=== PATIENT | male | born 1975 | race Caucasian/White ===

== ENCOUNTER 2016-11-20 01:14 | Emergency (ER) | payer OTHER ==
[~2016-11-20] VITALS: Ht 182.8 cm; Wt 95.3 kg
[~2016-11-20 01:14] MED LIST: ABILIFY15 MG PO; ACYCLOVIR800 MG PO; ALBUTEROL0.09 MG/A2 IH; AMOXICILLIN500 M2 PO; BIAXIN500 MG PO; CIPRODEX 0.3%-7.5 ML OT; CLARITIN10 MG PO; DOXYCYCLINE MO100 MG PO; FLEXERIL10 MG PO; FLONASE ALLERG9.9 ML NS; IBU800 MG PO; MOTRIN800 MG PO; Motrin,Rufen800 MG PO; PHENERGAN W/DM120 ML PO; PREDNISONE10 MG PO; PREDNISONE20 MG PO; ROBITUSSIN AC 110 ML PO; SUDAFED60 MG PO; TESSALON PERLE200 MG PO; VENTOLIN H0.09 MG/AC INH; ZITHROMAX Z PA250 MG PO; ZITHROMAX250 MG PO; ZOFRAN4 MG PO; ZYRTEC10 MG PO
[2016-11-20 01:54] LABS: BASO % 0.5 % (0.0-1.0); EOS % 0.5 % (1.0-4.0); HEMATOCRIT 42.5 % (42.0-52.0); HEMOGLOBIN 14.7 g/dl (14.0-18.0); LYMPH # 1.1 10*3/uL (1.3-4.4); LYMPH % 12.6 % (27.0-41.0); MEAN CELL VOLUME 88.2 fl (80.0-94.0); MEAN CORPUSCULAR HGB 30.5 pg (27.0-31.0); MEAN CORPUSCULAR HGB CONC 34.6 g/dl (33.0-37.0); MEAN PLATELET VOLUME 10.8 fl (9.6-12.3); MONO # 0.7 10*3/uL (0.1-1.0); MONO % 8.7 % (3.0-9.0); NEUT # 6.5 10*3/uL (2.3-7.9); NEUT % 77.6 % (47.0-73.0); PLATELET COUNT AUTOMATED 195 10*3/uL (130-400); RED BLOOD COUNT 4.82 10*6/uL (4.50-5.90); RED CELL DISTRI WIDTH 13.3 % (0-14.5); WHITE BLOOD COUNT 8.3 10*3/uL (4.8-10.8)
[2016-11-20 02:11] LABS: BUN 14 mg/dl (7-24); C-REACTIVE PROTEIN 6.69 MG/DL (0-0.3); CARBON DIOXIDE 21 mmol/L (21-32); CHLORIDE 105 mmol/L (98-107); EST GLOM FILT AFRICAN AMERICAN > 60 ml/min; GLUCOSE 143 mg/dL (65-99); POTASSIUM 3.7 mmol/L (3.5-5.1); SODIUM 138 mmol/L (136-145)
[2016-11-20] MEDS ORDERED: AMOXICILLIN500 M2 PO (03:02)
[2016-11-20] MEDS ORDERED: KETOROLAC10 MG PO (03:02)
== END 2016-11-20 03:30 | disposition home or self-care (01) ==
LOC: ED 01:14
PROVIDERS: Emergency Medicine Emergency Medical Services
DX: J02.9 Acute pharyngitis, unspecified (principal); M79.1 Myalgia; R21 Rash and other nonspecific skin eruption; R05 Cough; F17.200 Nicotine dependence, unspecified, uncomplicated

== ENCOUNTER 2020-07-01 02:44 | Observation (INO) | payer OTHER ==
[~2020-07-01] VITALS: Ht 185.4 cm; Wt 94.9 kg
[~2020-07-01 02:44] MED LIST changes: +KETOROLAC10 MG PO
[2020-07-01 02:52] VITALS: BP 176/139
[2020-07-01 03:40] LABS: BASO % 0.3 % (0.0-1.0); EOS # 0.1 10*3/uL (0.0-0.4); EOS % 0.6 % (1.0-4.0); HEMATOCRIT 45.8 % (42.0-52.0); LYMPH # 2.8 10*3/uL (1.3-4.4); LYMPH % 21.4 % (27.0-41.0); MEAN CELL VOLUME 90.3 fl (80.0-94.0); MEAN CORPUSCULAR HGB CONC 33.2 g/dl (33.0-37.0); MEAN PLATELET VOLUME 10.7 fl (9.6-12.3); MONO # 0.7 10*3/uL (0.1-1.0); MONO % 5.4 % (3.0-9.0); NEUT # 9.3 10*3/uL (2.3-7.9); NEUT % 72.1 % (47.0-73.0); PLATELET COUNT AUTOMATED 236 10*3/uL (130-400); RED BLOOD COUNT 5.07 10*6/uL (4.50-5.90); RED CELL DISTRI WIDTH 13.8 % (0-14.5)
[2020-07-01 03:55] VITALS: BP 152/92
[2020-07-01 03:57] LABS: ALBUMIN 4.2 gm/dl (3.1-4.5); ALKALINE PHOSPHATASE 126 U/L (45-117); BUN 13 mg/dl (7-24); CHLORIDE 108 mmol/L (98-107); CREATININE 1.15 mg/dL (0.70-1.30); POTASSIUM 3.5 mmol/L (3.5-5.1); SGOT/AST 22 IU/L (3-35); SGPT/ALT 40 U/L (12-78); SODIUM 139 mmol/L (136-145); TOTAL PROTEIN 8.2 gm/dL (6.4-8.2)
[2020-07-01 04:04] LABS: TROPONIN I < 0.015 ng/ml (<0.045)
[2020-07-01 05:55] VITALS: BP 164/100
[2020-07-01] MEDS ORDERED: IBU800 M1 PO (06:09)
[2020-07-01 08:00] VITALS: BP 149/92
[2020-07-01 12:00] VITALS: BP 145/71
[2020-07-01] MEDS ORDERED: LISINOPRIL5 MG PO (13:30)
[2020-07-01] MEDS ORDERED: HYDROCODONE-AC1 EAC1 PO (13:30)
[2020-07-01] MEDS ORDERED: CLEOCIN HCL300 MG PO (13:32)
== END 2020-07-01 14:20 | disposition home or self-care (01) ==
LOC: ED 02:44 → EDHOLD 04:41 → 4E 05:06
PROVIDERS: Student in an Organized Health Care Education/Training Program; ADMIT Student in an Organized Health Care Education/Training Program; ATTEND Student in an Organized Health Care Education/Training Program
DX: A41.9 Sepsis, unspecified organism (principal); K04.7 Periapical abscess without sinus; I16.1 Hypertensive emergency; R51 Headache; R00.0 Tachycardia, unspecified; D72.829 Elevated white blood cell count, unspecified; F17.210 Nicotine dependence, cigarettes, uncomplicated; J30.2 Other seasonal allergic rhinitis

== ENCOUNTER 2022-09-07 20:52 | Emergency (ER) | payer OTHER ==
[~2022-09-07] VITALS: Ht 182.8 cm; Wt 102.1 kg
[~2022-09-07 20:52] MED LIST changes: +CLEOCIN HCL300 MG PO; +HYDROCODONE-AC1 EAC1 PO; +IBU800 M1 PO; +LISINOPRIL5 MG PO
[2022-09-07 21:55] LABS: BASO # 0.1 10*3/uL (0.0-0.1); BASO % 0.5 % (0.0-1.0); EOS # 0.2 10*3/uL (0.0-0.4); EOS % 1.9 % (1.0-4.0); HEMATOCRIT 46.8 % (42.0-52.0); LYMPH # 2.4 10*3/uL (1.3-4.4); LYMPH % 24.8 % (27.0-41.0); MEAN CELL VOLUME 92.7 fl (80.0-94.0); MEAN CORPUSCULAR HGB 31.5 pg (27.0-31.0); MEAN PLATELET VOLUME 10.6 fl (9.6-12.3); MONO # 0.7 10*3/uL (0.1-1.0); MONO % 7.7 % (3.0-9.0); NEUT # 6.3 10*3/uL (2.3-7.9); NEUT % 64.7 % (47.0-73.0); PLATELET COUNT AUTOMATED 238 10*3/uL (130-400); RED BLOOD COUNT 5.05 10*6/uL (4.50-5.90); RED CELL DISTRI WIDTH 13.2 % (0-14.5); WHITE BLOOD COUNT 9.7 10*3/uL (4.8-10.8)
[2022-09-07 22:08] LABS: ACT PARTIAL THROMBO TIME 26.4 SECONDS (20.0-32.1)
[2022-09-07 22:18] LABS: ALKALINE PHOSPHATASE 142 U/L (45-117); BUN 17 mg/dl (7-24); CHLORIDE 111 mmol/L (98-107); CREATININE 1.15 mg/dL (0.70-1.30); POTASSIUM 3.8 mmol/L (3.5-5.1); SGOT/AST 26 IU/L (3-35); SGPT/ALT 60 U/L (12-78); SODIUM 141 mmol/L (136-145); TOTAL PROTEIN 7.5 gm/dL (6.4-8.2)
== END 2022-09-08 01:22 | disposition home or self-care (01) ==
LOC: ED 20:52
PROVIDERS: Family Medicine
DX: R07.89 Other chest pain (principal); R74.8 Abnormal levels of other serum enzymes; R03.0 Elevated blood-pressure reading, without diagnosis of hypertension; R61 Generalized hyperhidrosis; F17.200 Nicotine dependence, unspecified, uncomplicated; Z90.89 Acquired absence of other organs

== ENCOUNTER → 2023-08-20 | Outpatient (CLI) | payer OTHER ==
[2023-08-20 17:30] LABS: BASO % 0.6 % (0.0-1.0); EOS # 0.2 10*3/uL (0.0-0.4); EOS % 2.6 % (1.0-4.0); HEMATOCRIT 45.1 % (42.0-52.0); LYMPH # 1.7 10*3/uL (1.3-4.4); LYMPH % 26.1 % (27.0-41.0); MEAN CELL VOLUME 93.4 fl (80.0-94.0); MEAN CORPUSCULAR HGB 31.9 pg (27.0-31.0); MEAN CORPUSCULAR HGB CONC 34.1 g/dl (33.0-37.0); MEAN PLATELET VOLUME 10.4 fl (9.6-12.3); MONO # 0.5 10*3/uL (0.1-1.0); MONO % 8.1 % (3.0-9.0); NEUT # 4.1 10*3/uL (2.3-7.9); NEUT % 62.4 % (47.0-73.0); PLATELET COUNT AUTOMATED 244 10*3/uL (130-400); RED BLOOD COUNT 4.83 10*6/uL (4.50-5.90); WHITE BLOOD COUNT 6.5 10*3/uL (4.8-10.8)
[2023-08-20 17:57] LABS: ALKALINE PHOSPHATASE 124 U/L (46-116); BUN 16 mg/dl (9-23); CHLORIDE 106 mmol/L (98-107); CHOLESTEROL 234 mg/dL (<200); LDL CHOLESTEROL 150 mg/dL (9-159); POTASSIUM 4.3 mmol/L (3.4-5.1); SGPT/ALT 37 U/L (5-49); TOTAL PROTEIN 7.5 gm/dL (6.0-8.0); TRIGLYCERIDES 225 mg/dl (<150)
== END | disposition home or self-care (01) ==
LOC: LAB 17:08
PROVIDERS: ATTEND Nurse Practitioner Family
DX: I10 Essential (primary) hypertension (principal); R53.83 Other fatigue

== ENCOUNTER 2024-05-23 16:29 | Emergency (ER) | payer OTHER ==
[~2024-05-23] VITALS: Ht 182.8 cm; Wt 93.9 kg
[2024-05-23 17:58] LABS: BASO % 0.4 % (0.0-1.0); EOS # 0.1 10*3/uL (0.0-0.4); EOS % 1.2 % (1.0-4.0); HEMATOCRIT 38.5 % (42.0-52.0); LYMPH # 1.4 10*3/uL (1.3-4.4); LYMPH % 12.5 % (27.0-41.0); MEAN CELL VOLUME 90.6 fl (80.0-94.0); MEAN CORPUSCULAR HGB CONC 35.3 g/dl (33.0-37.0); MEAN PLATELET VOLUME 10.3 fl (9.6-12.3); MONO # 1.2 10*3/uL (0.1-1.0); MONO % 10.4 % (3.0-9.0); NEUT # 8.4 10*3/uL (2.3-7.9); NEUT % 75.1 % (47.0-73.0); PLATELET COUNT AUTOMATED 214 10*3/uL (130-400); RED BLOOD COUNT 4.25 10*6/uL (4.50-5.90); RED CELL DISTRI WIDTH 12.4 % (0-14.5); WHITE BLOOD COUNT 11.2 10*3/uL (4.8-10.8)
[2024-05-23] MEDS ORDERED: LISINOPRIL20 MG PO (18:08)
[2024-05-23] MEDS ORDERED: GEMFIBROZIL600 MG PO (18:08)
[2024-05-23] MEDS ORDERED: PANTOPRAZOLE SO40 MG PO (18:09)
[2024-05-23 18:12] LABS: BUN 9 mg/dl (9-23); CHLORIDE 100 mmol/L (98-107)
[2024-05-23] MEDS ORDERED: POTASSIUM CHLORIDE 20 MEQ TAB PO ONE (18:20)
[2024-05-23] MEDS ORDERED: SODIUM CHLORIDE 0.9% 1,000 ML IV ONE (19:05)
[2024-05-23 19:50] LABS: BILIRUBIN Negative (Negative); BLOOD 3+ (Negative); CLARITY Clear (Clear); COLOR Yellow (Yellow); GLUCOSE Negative (Negative); KETONE Negative (Negative); LEUKO ESTERASE Trace (Negative); NITRITE Negative (Negative); PH 5.5 (4.5-8.0); SPECIFIC GRAVITY 1.015 (1.001-1.030)
[2024-05-23 19:59] LABS: BACTERIA 2+; RBC 51-100 rbc/hpf (0-2)
[2024-05-23] MEDS ORDERED: Ceftriaxone Sodium 1 GM/10 ML SYR IV ONE (20:05)
[2024-05-23] MEDS ORDERED: OMNICEF300 MG PO (21:00)
[2024-05-23] MEDS ORDERED: Ondansetron4 MG PO (21:00)
== END 2024-05-23 21:17 | disposition home or self-care (01) ==
LOC: ED 16:29
PROVIDERS: Nurse Practitioner Family
DX: B34.9 Viral infection, unspecified (principal); Z20.822 Contact with and (suspected) exposure to COVID-19; N39.0 Urinary tract infection, site not specified; R31.9 Hematuria, unspecified; E16.2 Hypoglycemia, unspecified; E87.6 Hypokalemia; R11.10 Vomiting, unspecified; K21.9 Gastro-esophageal reflux disease without esophagitis; F31.9 Bipolar disorder, unspecified; E78.00 Pure hypercholesterolemia, unspecified; Z72.0 Tobacco use; Z90.89 Acquired absence of other organs; Z98.890 Other specified postprocedural states

== ENCOUNTER 2024-06-01 06:08 | Emergency (ER) | payer OTHER ==
[~2024-06-01] VITALS: Ht 182.8 cm; Wt 88.5 kg
[~2024-06-01 06:08] MED LIST changes: +GEMFIBROZIL600 MG PO; +LISINOPRIL20 MG PO; +OMNICEF300 MG PO; +Ondansetron4 MG PO; +PANTOPRAZOLE SO40 MG PO
[2024-06-01] MEDS ORDERED: Ondansetron Hydrochloride 4 MG/2 ML VIAL IV ONE (06:35)
[2024-06-01] MEDS ORDERED: SODIUM CHLORIDE 0.9% 1,000 ML IV ONE (06:35)
[2024-06-01] MEDS ORDERED: HYDROmorphONE Hydrochloride 0.5 MG/0.5 ML SYRINGE IV ONE (06:35)
[2024-06-01 06:45] LABS: BASO # 0.1 10*3/uL (0.0-0.1); BASO % 0.5 % (0.0-1.0); EOS # 0.1 10*3/uL (0.0-0.4); EOS % 1.2 % (1.0-4.0); HEMATOCRIT 37.5 % (42.0-52.0); LYMPH # 2.3 10*3/uL (1.3-4.4); LYMPH % 20.5 % (27.0-41.0); MEAN CELL VOLUME 91.7 fl (80.0-94.0); MEAN CORPUSCULAR HGB 31.3 pg (27.0-31.0); MEAN CORPUSCULAR HGB CONC 34.1 g/dl (33.0-37.0); MEAN PLATELET VOLUME 9.2 fl (9.6-12.3); MONO # 0.5 10*3/uL (0.1-1.0); MONO % 4.4 % (3.0-9.0); NEUT # 8.1 10*3/uL (2.3-7.9); NEUT % 72.8 % (47.0-73.0); PLATELET COUNT AUTOMATED 380 10*3/uL (130-400); RED BLOOD COUNT 4.09 10*6/uL (4.50-5.90); RED CELL DISTRI WIDTH 12.6 % (0-14.5); WHITE BLOOD COUNT 11.1 10*3/uL (4.8-10.8)
[2024-06-01 06:55] LABS: BILIRUBIN Negative (Negative); BLOOD 3+ (Negative); CLARITY Clear (Clear); COLOR Yellow (Yellow); GLUCOSE Negative (Negative); KETONE Trace (Negative); LEUKO ESTERASE 2+ (Negative); NITRITE Negative (Negative); PH 5.5 (4.5-8.0)
[2024-06-01 07:12] LABS: BUN 14 mg/dl (9-23); CHLORIDE 104 mmol/L (98-107); POTASSIUM 3.7 mmol/L (3.4-5.1)
[2024-06-01 07:12] LABS: BACTERIA 1+; EPITHELIAL CELLS 0-2; MUCOUS 2+; RBC 31-40 rbc/hpf (0-2); WBC 31-40 wbc/hpf (0-5)
[2024-06-01] MEDS ORDERED: Ceftriaxone Sodium 1 GM/10 ML SYR IV ONE (08:10)
[2024-06-01] MEDS ORDERED: HYDROmorphONE Hydrochloride 1 MG/ML SYR IV ONE (08:20)
[2024-06-01] MEDS ORDERED: PERCOCET 5-3251 EACH PO (08:21)
== END 2024-06-01 09:00 | disposition home or self-care (01) ==
LOC: ED 06:08
PROVIDERS: Emergency Medicine
DX: N20.0 Calculus of kidney (principal); E87.6 Hypokalemia; E87.1 Hypo-osmolality and hyponatremia; K21.9 Gastro-esophageal reflux disease without esophagitis; F31.9 Bipolar disorder, unspecified; E78.00 Pure hypercholesterolemia, unspecified; Z72.0 Tobacco use; Z98.890 Other specified postprocedural states; Z90.89 Acquired absence of other organs

== ENCOUNTER 2024-06-15 01:39 | Emergency (ER) | payer OTHER ==
[~2024-06-15] VITALS: Wt 99.8 kg
[~2024-06-15 01:39] MED LIST changes: +PERCOCET 5-3251 EACH PO
[2024-06-15] MEDS ORDERED: Ketorolac Tromethamine 15 MG/ML VIAL IM ONE (01:55)
[2024-06-15 02:14] LABS: BASO # 0.1 10*3/uL (0.0-0.1); BASO % 0.5 % (0.0-1.0); EOS # 0.5 10*3/uL (0.0-0.4); EOS % 3.9 % (1.0-4.0); MEAN CELL VOLUME 92.1 fl (80.0-94.0); MEAN CORPUSCULAR HGB 31.5 pg (27.0-31.0); MEAN CORPUSCULAR HGB CONC 34.1 g/dl (33.0-37.0); MEAN PLATELET VOLUME 9.8 fl (9.6-12.3); MONO # 0.7 10*3/uL (0.1-1.0); MONO % 5.5 % (3.0-9.0); NEUT # 6.8 10*3/uL (2.3-7.9); NEUT % 51.8 % (47.0-73.0); PLATELET COUNT AUTOMATED 347 10*3/uL (130-400); RED BLOOD COUNT 4.45 10*6/uL (4.50-5.90); RED CELL DISTRI WIDTH 13.1 % (0-14.5); WHITE BLOOD COUNT 13.1 10*3/uL (4.8-10.8)
[2024-06-15 02:27] LABS: BILIRUBIN Negative (Negative); BLOOD 3+ (Negative); CLARITY Clear (Clear); COLOR Yellow (Yellow); GLUCOSE Negative (Negative); KETONE Negative (Negative); LEUKO ESTERASE 3+ (Negative); NITRITE Negative (Negative); SPECIFIC GRAVITY <= 1.005 (1.001-1.030); UROBILINOGEN 0.2 E.U./dl (0.0-1.0)
[2024-06-15 02:35] LABS: URINE AMPHETAMINES Negative (1000ng/ml); URINE BARBITURATES Negative (200ng/ml); URINE BENZODIAZEPINES Negative (200ng/ml); URINE CANNABINOIDS (THC) Positive (50ng/ml); URINE COCAINE Negative (300ng/ml); URINE METHADONE Negative (300ng/ml); URINE OPIATES Negative (300ng/ml); URINE PHENCYCLIDINE Negative (25ng/ml)
[2024-06-15 02:36] LABS: ALKALINE PHOSPHATASE 144 U/L (46-116); BUN 11 mg/dl (9-23); CHLORIDE 101 mmol/L (98-107); POTASSIUM 3.5 mmol/L (3.4-5.1); SGPT/ALT 34 U/L (5-49); TOTAL PROTEIN 7.5 gm/dL (6.0-8.0)
[2024-06-15 03:07] LABS: RBC 16-20 rbc/hpf (0-2); WBC 31-40 wbc/hpf (0-5)
[2024-06-15] MEDS ORDERED: Piperacillin Sodium/Tazobact 50 ML IV ONE (03:25)
[2024-06-15] MEDS ORDERED: SODIUM CHLORIDE 0.9% 1,000 ML IV SCH (03:25)
[2024-06-15] MEDS ORDERED: Midazolam Hydrochloride 2 MG/2 ML VIAL IV ONE (03:35)
== END 2024-06-15 04:54 | disposition short-term general hospital (02) ==
LOC: ED 01:39
PROVIDERS: Internal Medicine
DX: N13.2 Hydronephrosis with renal and ureteral calculous obstruction (principal); A41.9 Sepsis, unspecified organism; R65.20 Severe sepsis without septic shock; R11.2 Nausea with vomiting, unspecified; F31.9 Bipolar disorder, unspecified; E78.00 Pure hypercholesterolemia, unspecified; Z90.89 Acquired absence of other organs; Z98.890 Other specified postprocedural states; Z72.0 Tobacco use

== ENCOUNTER 2024-07-09 19:42 | Emergency (ER) | payer OTHER ==
[~2024-07-09] VITALS: Ht 182.8 cm; Wt 90.7 kg
[2024-07-09 20:43] LABS: BILIRUBIN Negative (Negative); BLOOD Negative (Negative); CLARITY Clear (Clear); COLOR Yellow (Yellow); GLUCOSE Negative (Negative); KETONE Negative (Negative); LEUKO ESTERASE Negative (Negative); NITRITE Negative (Negative); PH 5.5 (4.5-8.0); UROBILINOGEN 0.2 E.U./dl (0.0-1.0)
[2024-07-09 20:51] LABS: BACTERIA 1+; MUCOUS 1+
[2024-07-09 22:10] LABS: BASO # 0.1 10*3/uL (0.0-0.1); BASO % 0.5 % (0.0-1.0); EOS # 0.2 10*3/uL (0.0-0.4); EOS % 1.9 % (1.0-4.0); HEMATOCRIT 39.3 % (42.0-52.0); MEAN CELL VOLUME 94.9 fl (80.0-94.0); MEAN CORPUSCULAR HGB 31.2 pg (27.0-31.0); MEAN CORPUSCULAR HGB CONC 32.8 g/dl (33.0-37.0); MEAN PLATELET VOLUME 10.1 fl (9.6-12.3); MONO # 0.6 10*3/uL (0.1-1.0); MONO % 6.4 % (3.0-9.0); NEUT # 5.9 10*3/uL (2.3-7.9); PLATELET COUNT AUTOMATED 236 10*3/uL (130-400); RED BLOOD COUNT 4.14 10*6/uL (4.50-5.90); WHITE BLOOD COUNT 9.8 10*3/uL (4.8-10.8)
[2024-07-09 22:31] LABS: ALKALINE PHOSPHATASE 139 U/L (46-116); BUN 7 mg/dl (9-23); CHLORIDE 108 mmol/L (98-107); POTASSIUM 3.6 mmol/L (3.4-5.1); SGPT/ALT 19 U/L (5-49); TOTAL PROTEIN 6.7 gm/dL (6.0-8.0)
[2024-07-09] MEDS ORDERED: Ketorolac Tromethamine 60 MG/2 ML VIAL IM ONE (22:50)
== END 2024-07-09 23:03 | disposition home or self-care (01) ==
LOC: ED 19:42
PROVIDERS: Internal Medicine
DX: R10.31 Right lower quadrant pain (principal); D53.9 Nutritional anemia, unspecified; F31.9 Bipolar disorder, unspecified; E78.00 Pure hypercholesterolemia, unspecified; Z87.442 Personal history of urinary calculi; Z90.89 Acquired absence of other organs; Z98.890 Other specified postprocedural states; Z72.0 Tobacco use

== ENCOUNTER 2024-10-27 04:51 | Emergency (ER) | payer OTHER ==
[~2024-10-27] VITALS: Ht 182.8 cm; Wt 91.6 kg
[2024-10-27 05:59] LABS: BUN 11 mg/dl (9-23); CHLORIDE 106 mmol/L (98-107); ETHYL ALCOHOL 76.8 mg/dl (<3); POTASSIUM 3.5 mmol/L (3.4-5.1)
[2024-10-27 06:00] LABS: BASO % 0.3 % (0.0-1.0); EOS # 0.2 10*3/uL (0.0-0.4); EOS % 1.9 % (1.0-4.0); MEAN CELL VOLUME 94.1 fl (80.0-94.0); MEAN CORPUSCULAR HGB 32.4 pg (27.0-31.0); MEAN CORPUSCULAR HGB CONC 34.4 g/dl (33.0-37.0); MONO # 0.6 10*3/uL (0.1-1.0); MONO % 6.3 % (3.0-9.0); NEUT # 5.8 10*3/uL (2.3-7.9); NEUT % 57.7 % (47.0-73.0); PLATELET COUNT AUTOMATED 239 10*3/uL (130-400); RED BLOOD COUNT 4.78 10*6/uL (4.50-5.90); RED CELL DISTRI WIDTH 13.1 % (0-14.5); WHITE BLOOD COUNT 10.1 10*3/uL (4.8-10.8)
[2024-10-27] MEDS ORDERED: Amoxicillin/Clavulanate Pota 875 MG TAB PO ONE (07:05)
[2024-10-27] MEDS ORDERED: AMOX-CLAV 875-1 EACH PO (07:52)
== END 2024-10-27 07:55 | disposition home or self-care (01) ==
LOC: ED 04:51
PROVIDERS: Internal Medicine
DX: S40.012A Contusion of left shoulder, initial encounter (principal); S09.8XXA Other specified injuries of head, initial encounter; H53.8 Other visual disturbances; R41.0 Disorientation, unspecified; R51.9 Headache, unspecified; R26.2 Difficulty in walking, not elsewhere classified; F31.9 Bipolar disorder, unspecified; E78.00 Pure hypercholesterolemia, unspecified; F10.129 Alcohol abuse with intoxication, unspecified; Z72.0 Tobacco use; Z79.899 Other long term (current) drug therapy; Z90.89 Acquired absence of other organs; Z98.890 Other specified postprocedural states; Y90.3 Blood alcohol level of 60-79 mg/100 ml; W50.3XXA Accidental bite by another person, initial encounter; Y93.89 Activity, other specified; Y92.009 Unspecified place in unspecified non-institutional (private) residence as the place of occurrence of the external cause; Y99.8 Other external cause status

== ENCOUNTER 2025-02-21 12:48 | Emergency (ER) | payer OTHER ==
[~2025-02-21] VITALS: Ht 185.4 cm; Wt 92.5 kg
[~2025-02-21 12:48] MED LIST changes: +AMOX-CLAV 875-1 EACH PO
[2025-02-21] MEDS ORDERED: SODIUM CHLORIDE 0.9% 1,000 ML IV ONE (13:20)
[2025-02-21] MEDS ORDERED: Ondansetron Hydrochloride 4 MG/2 ML VIAL IV ONE (13:20)
[2025-02-21] MEDS ORDERED: fentaNYL CITRATE/PF 50 MCG/ML SYRINGE IV ONE (13:20)
[2025-02-21] MEDS ORDERED: IOHEXOL 300 MG/ML 100 ML VIAL IV ONE (13:20)
[2025-02-21 13:32] LABS: BASO % 0.3 % (0.0-1.0); EOS # 0.1 10*3/uL (0.0-0.4); HEMATOCRIT 50.7 % (42.0-52.0); MEAN CELL VOLUME 94.4 fl (80.0-94.0); MEAN CORPUSCULAR HGB 32.4 pg (27.0-31.0); MEAN CORPUSCULAR HGB CONC 34.3 g/dl (33.0-37.0); MEAN PLATELET VOLUME 10.5 fl (9.6-12.3); MONO % 10.7 % (3.0-9.0); NEUT # 6.7 10*3/uL (2.3-7.9); NEUT % 73.7 % (47.0-73.0); PLATELET COUNT AUTOMATED 192 10*3/uL (130-400); RED BLOOD COUNT 5.37 10*6/uL (4.50-5.90); RED CELL DISTRI WIDTH 13.1 % (0-14.5); WHITE BLOOD COUNT 9.1 10*3/uL (4.8-10.8)
[2025-02-21 13:55] LABS: ALKALINE PHOSPHATASE 143 U/L (46-116); BUN 12 mg/dl (9-23); CHLORIDE 105 mmol/L (98-107); LIPASE 25 U/L (12-53); POTASSIUM 3.8 mmol/L (3.4-5.1); SGPT/ALT 62 U/L (5-49); TOTAL PROTEIN 7.3 gm/dL (6.0-8.0)
[2025-02-21 14:35] LABS: BILIRUBIN 2+ (Negative); BLOOD Negative (Negative); CLARITY Clear (Clear); COLOR Dark Yellow (Yellow); GLUCOSE Negative (Negative); KETONE Trace (Negative); LEUKO ESTERASE Trace (Negative); NITRITE Negative (Negative); PH 5.5 (4.5-8.0); SPECIFIC GRAVITY >= 1.030 (1.001-1.030)
[2025-02-21 14:41] LABS: MUCOUS 3+; RBC 0-2 rbc/hpf (0-2)
[2025-02-21 14:42] LABS: HYALINE CAST 0-2
[2025-02-21] MEDS ORDERED: CIPRO500 MG PO (15:58)
[2025-02-21] MEDS ORDERED: METRONIDAZOLE500 M1 PO (15:58)
[2025-02-21] MEDS ORDERED: Ciprofloxacin Hydrochloride 500 MG TAB PO ONE (16:00)
[2025-02-21] MEDS ORDERED: metroNIDAZOLE 500 MG TAB PO ONE (16:00)
== END 2025-02-21 16:31 | disposition home or self-care (01) ==
LOC: ED 12:48
PROVIDERS: Nurse Practitioner Family
DX: K57.32 Diverticulitis of large intestine without perforation or abscess without bleeding (principal); F17.200 Nicotine dependence, unspecified, uncomplicated; Z79.899 Other long term (current) drug therapy; Z98.890 Other specified postprocedural states; Z90.89 Acquired absence of other organs; Z87.442 Personal history of urinary calculi